=== PATIENT | female | born 1950 | race Caucasian/White ===

== ENCOUNTER → 2017-05-28 | Outpatient (CLI) | payer OTHER ==
[~2017-05-28] MED LIST: ASPI-435 PO; CALC500C70 PO; CZR25 PO; EFFEXOR PO; GLC/500 PO; LPD600 PO; NTRGSL/4 UT; OMEG10002 PO; PRAV80TA PO; SYN50 PO
--- NOTE | 2017-05-29 14:03 | MAMMOGRAPHY REPORT ---
BILATERAL DIGITAL SCREENING MAMMOGRAM TOMOSYNTHESIS WITH CAD: 05/28/2017 CLINICAL HISTORY: Routine screening. Patient has no complaints. TECHNIQUE: Breast tomosynthesis in addition to standard 2D mammography was performed. Current study was also evaluated with a Computer Aided Detection (CAD) system. COMPARISON: Comparison is made to exams dated: 05/22/2016 mammogram, 05/18/2015 mammogram, 05/05/2014 ma mmogram, 04/29/2013 mammogram, 04/28/2012 mammogram, and 04/25/2011 mammogram - [facility] ter. BREAST COMPOSITION: The tissue of both breasts is almost entirely fatty. FINDINGS: No suspicious masses, calcifications, or areas of architectural distortion are noted in ei ther breast. There has been no significant interval change compared to prior exams. Scattered bilater al benign-appearing calcifications are not significantly changed. IMPRESSION: ACR BI-RADS CATEGORY 2: BENIGN There is no mammographic evidence of malignancy. A 1 year screening mammogram is recommended. The pa tient will receive written notification of the results. Approximately 10% of breast cancers are not detected with mammography. A negative mammographic report should not delay biopsy if a clinically suggestive mass is present. Tia Osorio M.D. /:05/28/2017 16:46:37 Theatrical Variety Agent: Maira Obando, [facility] letter sent: Normal 1/2 BI-RADS Code: ACR BI-RADS Category 2: Benign
== END | disposition home or self-care (01) ==
LOC: C.MAMM 09:32
PROVIDERS: ATTEND Obstetrics & Gynecology
DX: Z12.31 Encounter for screening mammogram for malignant neoplasm of breast (principal)

== ENCOUNTER 2017-07-18 11:30 | Emergency (ER) | payer OTHER ==
[~2017-07-18] VITALS: Ht 162.6 cm; Wt 95.3 kg
[2017-07-18 11:35] VITALS: TEMP 37.1; Ht 162.6 cm; Wt 95.3 kg
[2017-07-18 11:55] VITALS: O2SAT 97
[2017-07-18] MEDS ORDERED: ASPI-435 PO (13:36)
[2017-07-18] MEDS ORDERED: CZR25 PO (13:36)
[2017-07-18] MEDS ORDERED: CALC500C70 PO (13:36)
[2017-07-18] MEDS ORDERED: NTRGSL/4 UT (13:36)
[2017-07-18] MEDS ORDERED: OMEG10002 PO (13:36)
[2017-07-18] MEDS ORDERED: LPD600 PO (13:36)
[2017-07-18] MEDS ORDERED: GLC/500 PO (13:36)
[2017-07-18] MEDS ORDERED: SYN50 PO (13:36)
[2017-07-18] MEDS ORDERED: EFFEXOR PO (13:36)
[2017-07-18] MEDS ORDERED: PRAV80TA PO (13:36)
--- NOTE | 2017-07-18 14:06 | DIAGNOSTIC IMAGING REPORT ---
CHEST 2 VIEWS ROUTINE CLINICAL HISTORY: Shortness of breath COMPARISON STUDY: No previous studies for comparison. FINDINGS: The cardiac and mediastinal contours are normal. There is no evidence of focal pulmonary consolidation. There is no evidence of failure. No pleural effusions are visualized.[ IMPRESSION: No active disease in the chest. Electronically signed by: Reji Mackey M.D. 07/18/2017 2:05 PM Dictated Date/Time: 07/18/2017 2:05 PM
[2017-07-18 14:29] LABS: BASO % 1.2 %; BASO ABS # 0.09 K/uL (0-0.2); COMPLETE YES; EOS % 4.6 %; HEMATOCRIT 40.5 % (37-47); IG% 0.3 %; LYMPH % 27.8 %; LYMPH ABS # 2.17 K/uL (1.2-3.4); MEAN CELL VOLUME 88.2 fL (80-100); MEAN CORPUSCULAR HEMOGLOBIN 29.8 pg (25-34); MEAN CORPUSCULAR HGB CONC 33.8 g/dl (32-36); MEAN PLATELET VOLUME 9.9 fL (7.4-10.4); MONO % 6.7 %; NEUT % 59.4 %; PLATELET COUNT 340 K/uL (130-400); RED BLOOD COUNT 4.59 M/uL (4.2-5.4)
[2017-07-18 14:38] LABS: ALT/SGPT 51 U/L (12-78); BLOOD UREA NITROGEN 11 mg/dl (7-18); BUN/CREATININE RATIO 16.8 (10-20); CALCIUM 9.5 mg/dl (8.5-10.1); CARBON DIOXIDE 23 mmol/L (21-32); CHLORIDE 106 mmol/L (98-107); CREATININE 0.68 mg/dl (0.60-1.20); GLUCOSE 111 mg/dl (70-99); POTASSIUM 3.8 mmol/L (3.5-5.1); SODIUM 138 mmol/L (136-145)
[2017-07-18 14:39] LABS: PARTIAL THROMBOPLASTIN RATIO 1.1; PROTHROMBIN TIME (PATIENT) 10.3 SECONDS (9.0-12.0)
[2017-07-18 14:48] LABS: ALB/GLOB RATIO 1.2 (0.9-2); ALKALINE PHOSPHATASE 78 U/L (45-117); AST/SGOT 17 U/L (15-37); CKMB/CK RATIO 1.6 (0-3.0)
--- NOTE | 2017-07-18 17:19 | EMERGENCY ROOM VISIT NOTE ---
History First contact with patient: 12:54 Chief Complaint: SHORTNESS OF BREATH Stated Complaint: SOB,ANXIOUS Nursing Triage Summary: Patient reports having some sob and heaviness with breathing. "this has been ongoing over most of the summer." went to pcp and I was told to come here. Patient reports history of anxiety, denies history of asthma. History of Present Illness Patient is a 66-year-old white female with past history significant for hypertension, GERD, hypothyroidism, diabetes, dyslipidemia and anxiety who presents emergency department for evaluation of shortness of breath. Her symptoms started several months ago, she states since the beginning of summer. She reports intermittently feeling short of breath, it is primarily with exertion.. She states that she often has to stop and concentrate to take a full deep breath. She notes that it does not happen every day, and some days she can perform her normal activities and not experience any symptoms. She cannot relate any specific activity that always causes her symptoms. She states that she begins to feel like her upper body and her arms feel heavy and weak. She feels short of breath. She states if she does not stop she will develop some chest pressure and palpitations. She denies any associated lightheadedness, dizziness or presyncope. She denies any calf or leg pain or swelling. No DVT or PE risk factors. She denies any household or occupational exposures, but reports that her parents were very heavy smokers when she was young. She has never smoked herself. She has a changes in her medications recently. No calf or leg pain or swelling. She was referred to the emergency department by Dr. Way. At the present time, she is asymptomatic. She rates her pain a 0/10. Review of Systems Review of systems as per HPI. All other systems reviewed were negative. 10 systems reviewed. Past Medical/Surgical History Medical Problems: (1) Anxiety (2) Diabetes (3) Dyslipidemia (4) GERD (gastroesophageal reflux disease) (5) Hypertension (6) Hypothyroidism (7) Laceration of third finger, left, complicated (8) Laceration of third finger, left, complicated Surgical Problems: (1) History of tonsillectomy Electronic medical records are reviewed and summarized as above/below. See Problem List. Social History Smoking Status: Never Smoker Alcohol Use: none Marital Status: Occupation Status: unemployed Current/Historical Medications Scheduled Aspirin (Aspirin 81), 81 MG PO DAILY Calcium/Vitamin D (Os-Lalo 500 Plus D), 1 TAB PO DAILY Gemfibrozil (Gemfibrozil), 600 MG PO BID Levothyroxine Sodium (Synthroid), 50 MCG PO QAM Losartan Potassium (Losartan Potassium), 25 MG PO DAILY Metformin Hcl (Glucophage), 500 MG PO BID Nitroglycerin (Nitrostat), 0.4 MG UT PRN [place]arat-3 Fatty Acids (Fish Oil), 1,000 MG PO DAILY Pravastatin Sodium (Pravachol), 80 MG PO 3XWK [Effexor], 1 DOSE PO DAILY Physical Exam Vital Signs Date Time Temp Pulse Resp B/P (MAP) Pulse Ox O2 Delivery O2 Flow Rate FiO2 07/18/17 18:14 71 18 160/80 99 07/18/17 18:13 71 18 160/80 99 Room Air 07/18/17 17:02 63 20 163/95 98 Room Air 07/18/17 16:19 71 07/18/17 16:08 68 20 152/80 95 Room Air 07/18/17 14:48 66 20 140/84 96 Room Air 07/18/17 13:13 68 18 149/80 98 Room Air 07/18/17 12:09 72 07/18/17 11:57 97 Room Air 07/18/17 11:55 97 Room Air 07/18/17 11:35 37.1 73 18 179/80 97 Room Air Physical Exam CONSTITUTIONAL: Patient is a pleasant, well-appearing 66-year-old white female who is awake and alert and in no acute distress. EYES: Pupils equal, round, reactive to light and accommodation. EOMs intact without nystagmus. Sclera are anicteric. ENT: Tympanic membranes intact, with normal landmarks. External canals are clear. Oral and nasopharynx are clear. Mucous membranes are moist, no lesions , tongue and gums appear normal. NECK: No bruits auscultated. Supple without lymphadenopathy. No thyromegaly. No meningeal signs. Full active range of motion without discomfort. CARDIOVASCULAR: Regular rate and rhythm, with normal S1 and S2, no murmur or gallop or rub is heard. No carotid bruits auscultated. No JVD. Peripheral pulses easy to palpable. RESPIRATORY: Breath sounds equal and clear to auscultation without wheezes, rales, or rhonchi heard. Full and equal chest expansion without accessory muscle use or retractions. GI: Bowel sounds are present. Abdomen is soft, nontender, nondistended. No organomegaly. No pulsatile masses. No guarding or rebound. MUSCULOSKELETAL: Full range of motion of extremities x 4 with good strength. No cyanosis, edema, joint tenderness or swelling. No deformity. INTEGUMENTARY: No lesions or rash, normal skin turgor. NEUROLOGICAL: Alert, oriented, and cooperative. Cranial nerves, sensation and strength grossly intact. Pupils round, equal, and react to light, EOMs are full. LYMPH: No lymphadenopathy. Medical Decision & Procedures ER Provider Diagnostic Interpretation: CHEST 2 VIEWS ROUTINE CLINICAL HISTORY: Shortness of breath COMPARISON STUDY: No previous studies for comparison. FINDINGS: The cardiac and mediastinal contours are normal. There is no evidence of focal pulmonary consolidation. There is no evidence of failure. No pleural effusions are visualized. IMPRESSION: No active disease in the chest. Laboratory Results 07/18/17 11:51 Red Blood Count 4.59, Mean Corpuscular Volume 88.2, Mean Corpuscular Hemoglobin 29.8, Mean Corpuscular Hemoglobin Concent 33.8, Mean Platelet Volume 9.9, Neutrophils (%) (Auto) 59.4, Lymphocytes (%) (Auto) 27.8, Monocytes (%) (Auto) 6.7, Eosinophils (%) (Auto) 4.6, Basophils (%) (Auto) 1.2, Neutrophils # (Auto) 4.64, Lymphocytes # (Auto) 2.17, Monocytes # (Auto) 0.52, Eosinophils # (Auto) 0.36, Basophils # (Auto) 0.09 07/18/17 11:51 Test 07/18/17 11:51 07/18/17 13:36 07/18/17 17:02 White Blood Count 7.80 K/uL (4.8-10.8) Red Blood Count 4.59 M/uL (4.2-5.4) Hemoglobin 13.7 g/dL (12.0-16.0) Hematocrit 40.5 % (37-47) Mean Corpuscular Volume 88.2 fL (80-100) Mean Corpuscular Hemoglobin 29.8 pg (25-34) Mean Corpuscular Hemoglobin Concent 33.8 g/dl (32-36) Platelet Count 340 K/uL (130-400) Mean Platelet Volume 9.9 fL (7.4-10.4) Neutrophils (%) (Auto) 59.4 % Lymphocytes (%) (Auto) 27.8 % Monocytes (%) (Auto) 6.7 % Eosinophils (%) (Auto) 4.6 % Basophils (%) (Auto) 1.2 % Neutrophils # (Auto) 4.64 K/uL (1.4-6.5) Lymphocytes # (Auto) 2.17 K/uL (1.2-3.4) Monocytes # (Auto) 0.52 K/uL (0.11-0.59) Eosinophils # (Auto) 0.36 K/uL (0-0.5) Basophils # (Auto) 0.09 K/uL (0-0.2) RDW Standard Deviation 42.3 fL (36.4-46.3) RDW Coefficient of Variation 13.2 % (11.5-14.5) Immature Granulocyte % (Auto) 0.3 % Immature Granulocyte # (Auto) 0.02 K/uL (0.00-0.02) Prothrombin Time 10.3 SECONDS (9.0-12.0) Prothromb Time International Ratio 1.0 (0.9-1.1) Activated Partial Thromboplast Time 29.6 SECONDS (21.0-31.0) Partial Thromboplastin Ratio 1.1 Anion Gap 9.0 mmol/L (3-11) Est Creatinine Clear Calc Drug Dose 92.4 ml/min Estimated GFR () 106.4 Estimated GFR (Non- 91.8 BUN/Creatinine Ratio 16.8 (10-20) Calcium Level 9.5 mg/dl (8.5-10.1) Total Bilirubin 0.4 mg/dl (0.2-1) Aspartate Amino Transf (AST/SGOT) 17 U/L (15-37) Alanine Aminotransferase (ALT/SGPT) 51 U/L (12-78) Alkaline Phosphatase 78 U/L (45-117) Total Creatine Kinase 110 U/L (26-192) Creatine Kinase MB 1.8 ng/ml (0.5-3.6) Creatine Kinase MB Ratio 1.6 (0-3.0) Total Protein 8.3 gm/dl (6.4-8.2) Albumin 4.5 gm/dl (3.4-5.0) Globulin 3.8 gm/dl (2.5-4.0) Albumin/Globulin Ratio 1.2 (0.9-2) Thyroid Stimulating Hormone (TSH) 2.300 uIu/ml (0.300-4.500) Bedside D-Dimer 143 ng/mlFEU (0-450) Troponin I < 0.015 ng/ml (0-0.045) ECG Indication: SOB/dyspnea Rate (beats per minute): 72 Rhythm: sinus with SA Findings: T-wave inversion (Inferior) Comparison ECG Date: no prior available ED Course The patient was seen and evaluated as above. Old records were reviewed. IV lock was initiated. EKG was performed and was as noted above. Laboratory studies were collected including CBC with differential, coags, cardiac enzymes, CMP, TSH and [id number] d-dimer. Chest x-ray was obtained and was unremarkable. Laboratory studies noted no leukocytosis, anemia, left shift or bandemia. Coags are unremarkable and [id number] d-dimer is within normal limits, making PE unlikely. Electrolytes and renal functions are within normal limits. LFTs are not elevated. CK, CK-MB are normal. Troponin at 0 and 5 hours are unchanged. TSH is indicative of a euthyroid state. All laboratory and diagnostic imaging studies were reviewed with attending physician, who also independently evaluated the patient. Given the chronicity of her symptoms, with negative enzymes, but with EKG changes, I did review the patient with Dr. Gilliland with [facility] cardiology. He was in agreement, that if the patient had 2 sets of negative enzymes, she could go home, rather than be admitted for cardiac rule out, as she will require an echo and stress test, which will likely be performed as an outpatient, rather than in the hospital over the weekend. This was reviewed with the patient and she was in agreement. She was kept for the second troponin, remained completely asymptomatic, and as noted above second troponin was negative. The patient was given strict return to ED instructions, and was advised to call her PCPs office on Friday to set up a follow-up appointment with cardiology for further care and testing. She expressed understanding of this and was agreeable. She is discharged home with her sisters in stable condition. BP fluctuated while she was in the emergency department. Some of this could be situational, but she was advised to have this rechecked in follow-up as well. Differential diagnosis includes acute myocardial infarction, acute coronary syndrome, myocarditis, pericarditis, pulmonary embolism, pneumonia, pneumothorax , cardiomyopathy, congestive heart failure, anemia, COPD/asthma exacerbation, mass or malignancy, medication side effect, metabolic or endocrinologic abnormality, among others. Medical Decision See Emergency Department course. Medication Reconcilliation Current Medication List: was personally reviewed by me Blood Pressure Screening Patient's blood pressure: Elevated blood pressure Blood pressure disposition: Elevated BP felt to be situational, Referred to PCP Impression Primary Impression: Exertional shortness of breath Departure Information Referrals Leigh Way D.O. (PCP) Patient Instructions My [facility] Additional Instructions Acetaminophen(Tylenol) may be used for fever or pain. Use 1000mg every six hours as needed. Avoid using more than 3000mg in a 24 hour period. Rest and drink plenty of fluids as tolerated. Continue current medications. Avoid strenuous activities and anything that worsens your pain. Resume normal activities once your symptoms resolve. Return to the ER immediately for worsening or persistent chest pain, abdominal pain, vomiting, fevers, chest pains, difficulty breathing, worsening of your condition, or as needed. Follow up with your primary physician by phone on Friday to notify them of the results of your ED visit, and to schedule cardiology follow-up for further testing.
--- NOTE | 2017-07-18 18:10 | EMERGENCY ROOM VISIT NOTE ---
ED Visit Note First contact with patient: 12:54 Patient seen and evaluated at bedside after discussion with physician assistant center director. She well-appearing here with no current complaints. Patient aware of all results as well as conversation with cardiology. Patient aware of need for close follow-up. Discussed with patient symptoms to watch and return for, concern given her story spite being chronic. Concern for subtle EKG changes. She verbalized understanding of all this was agreeable with plan.
[2017-07-18 18:14] VITALS: BP 160/80; PULSE 71; O2SAT 99
== END 2017-07-18 18:15 | disposition home or self-care (01) ==
LOC: C.EDB 11:31 → C.EDC 18:15
DX: R06.02 Shortness of breath (principal); I10 Essential (primary) hypertension; E11.9 Type 2 diabetes mellitus without complications; F41.9 Anxiety disorder, unspecified; E78.5 Hyperlipidemia, unspecified; E03.9 Hypothyroidism, unspecified; K21.9 Gastro-esophageal reflux disease without esophagitis; Z87.828 Personal history of other (healed) physical injury and trauma; Z79.82 Long term (current) use of aspirin; Z79.84 Long term (current) use of oral hypoglycemic drugs; Z79.899 Other long term (current) drug therapy

== ENCOUNTER → 2017-07-25 | Outpatient (CLI) | payer OTHER | END | disposition home or self-care (01) | LOC: C.PAPS 16:35 | PROVIDERS: ATTEND Obstetrics & Gynecology | DX: Z12.4 Encounter for screening for malignant neoplasm of cervix (principal) ==

== ENCOUNTER 2018-02-17 18:15 | Emergency (ER) | payer OTHER ==
[~2018-02-17] VITALS: Ht 162.6 cm; Wt 96.1 kg
[~2018-02-17 18:15] MED LIST changes: +ACYC-57 PO; +EFF/375 PO; -EFFEXOR PO; +LPT40 PO; +NIAC500T11 PO; +NTRSLP4 SL; +PLV75 PO; -PRAV80TA PO
[2018-02-17 18:30] VITALS: TEMP 36.6; Ht 162.6 cm; Wt 96.1 kg
--- NOTE | 2018-02-17 18:45 | EMERGENCY ROOM VISIT NOTE ---
History First contact with patient: 18:35 Chief Complaint: HAND PAIN/INJURY Stated Complaint: NEEDS HAND XRAYED History of Present Illness The patient is a 67 year old female who presents to the Emergency Room with complaints of right hand pain. The patient states that this morning, she tripped and fell over her grandson's scooter and landed onto her right hand. She reports pain in the right hand and little finger. She rates her discomfort a 3/10 and states it is dull. Pain is worse with movement of the hand. She has not taken anything for pain. She denies any other injuries. She did not hit her head. She denies any numbness or weakness. Review of Systems A complete 6 point review of systems was reviewed with the patient with pertinent positives and negatives as per history of present illness. All else were negative. Past Medical/Surgical History Medical Problems: (1) Anxiety (2) CAD (coronary artery disease) (3) Diabetes (4) Dyslipidemia (5) GERD (gastroesophageal reflux disease) (6) Hypertension (7) Hypothyroidism (8) Laceration of third finger, left, complicated (9) Laceration of third finger, left, complicated Surgical Problems: (1) History of tonsillectomy Social History Smoking Status: Never Smoker Alcohol Use: none Marital Status: Occupation Status: unemployed Current/Historical Medications Scheduled Acyclovir (Zovirax), 200 MG PO 5 TIMES DAILY Aspirin (Aspirin 81), 81 MG PO DAILY Atorvastatin (Lipitor), 80 MG PO QAM Calcium/Vitamin D (Os-Lalo 500 Plus D), 1 TAB PO BID Clopidogrel Bisulfate (Clopidogrel), 75 MG PO QAM Gemfibrozil (Gemfibrozil), 600 MG PO BID Levothyroxine Sodium (Synthroid), 50 MCG PO QAM Losartan Potassium (Losartan Potassium), 25 MG PO DAILY Metformin Hcl (Glucophage), 500 MG PO BID Niacin (Niacin), 1,000 MG PO DAILY Nitroglycerin (Nitrostat), 0.4 MG UT PRN [place]-3 Fatty Acids (Fish Oil), 1,000 MG PO DAILY Venlafaxine Hcl (Effexor), 50 MG PO DAILY Scheduled PRN Nitroglycerin (Nitrostat), 0.4 MG SL UD PRN for Chest Pain Physical Exam Vital Signs Date Time Temp Pulse Resp B/P (MAP) Pulse Ox O2 Delivery O2 Flow Rate FiO2 5/1/18 19:43 82 18 171/69 97 02/17/18 18:30 36.6 86 20 180/73 96 Room Air Physical Exam VITALS: Vitals are noted on the nurse's note and reviewed by myself. Vital signs stable. GENERAL: This is a 67-year-old female, in no acute distress, nondiaphoretic, well-developed well-nourished. SKIN: The skin was without rashes, erythema, edema, or bruising. MUSCULOSKELETAL: No deformity of the right hand. There is tenderness to palpation along the fifth metacarpal and in the right fifth finger. Full range of motion of all fingers. Strength 5/5 throughout. NEURO: Patient was alert and oriented to person place and time. Distal sensation intact. Medical Decision & Procedures ER Provider Diagnostic Interpretation: R HAND MIN 3 VIEWS ROUTINE HISTORY: 67 years-old Female right hand injury acute right hand pain status post injury COMPARISON: None available TECHNIQUE: 3 views of the right hand FINDINGS: Bones appear mildly demineralized. Mild radiocarpal with moderate triscaphe and first carpometacarpal osteoarthritis. Moderate interphalangeal degenerative changes are noted throughout, notably within the DIP joints. There is no acute fracture or dislocation identified. No opaque foreign body. IMPRESSION: 1. No acute fracture or dislocation. 2. Mildly demineralized appearance of the bones with degenerative changes as above. Medical Decision Differential diagnosis includes fracture, contusion, sprain, among others. The patient was evaluated as above. And x-ray was obtained and read by radiology with no acute findings. Patient was placed in a metal finger splint due to pain of the fifth finger. Conservative measures were discussed with the patient. She was advised to follow up with her PCP or orthopedist for any persistent symptoms. She verbalized understanding of my assessment and treatment plan and was discharged home in good condition. Medication Reconcilliation Current Medication List: was personally reviewed by me Blood Pressure Screening Patient's blood pressure: Elevated blood pressure Blood pressure disposition: Elevated BP felt to be situational Impression Primary Impression: Injury of right hand Departure Information Dispostion Home / Self-Care Condition GOOD Referrals Leigh Way D.O. (PCP) Patient Instructions My [facility] Additional Instructions You have been treated in the Emergency Department for a hand injury. For pain control, you can use the following [id number] medicines (if >12 yo): - Regular strength (325mg/tab) Tylenol (acetaminophen) 2 tabs every 4-6 hours as needed. Do not exceed 12 tablets in a 24 hour period. Avoid taking more than 4 grams (4000 mg) of Tylenol per day. This includes any other sources of acetaminophen you may take on a regular basis. - Regular strength (200 mg/tab) Advil (ibuprofen) 1-2 tabs every 4-6 hours as needed. Do not exceed a dose of 3200 mg per day. If this is a recent injury (<24 hrs), ice can be applied to the area of pain for the first 3 days to help decrease pain and inflammation. Keep the splint in place as needed for your comfort. Follow-up with your primary care provider or orthopedics if there is persistent pain or any other new/concerning symptoms. Return to the Emergency Department if your current symptoms worsen despite treatment course outlined above, or if you develop any of the following symptoms : intractable pain despite aforementioned treatment course or new onset of numbness or tingling of the fingers. Problem Qualifiers Primary Impression: Injury of right hand Encounter type: initial encounter Qualified Codes: S69.91XA - Unspecified injury of right wrist, hand and finger(s), initial encounter
--- NOTE | 2018-02-17 19:18 | DIAGNOSTIC IMAGING REPORT ---
R HAND MIN 3 VIEWS ROUTINE HISTORY: 67 years-old Female right hand injury acute right hand pain status post injury COMPARISON: None available TECHNIQUE: 3 views of the right hand FINDINGS: Bones appear mildly demineralized. Mild radiocarpal with moderate triscaphe and first carpometacarpal osteoarthritis. Moderate interphalangeal degenerative changes are noted throughout, notably within the DIP joints. There is no acute fracture or dislocation identified. No opaque foreign body. IMPRESSION: 1. No acute fracture or dislocation. 2. Mildly demineralized appearance of the bones with degenerative changes as above. The above report was generated using voice recognition software. It may contain grammatical, syntax or spelling errors. Electronically signed by: Edgar Toussaint M.D. 02/17/2018 7:16 PM Dictated Date/Time: 02/17/2018 7:14 PM
[2018-02-17 19:43] VITALS: BP 171/69; PULSE 82; O2SAT 97
== END 2018-02-17 19:43 | disposition home or self-care (01) ==
LOC: C.EDB 18:16 → C.EDD 19:43
DX: S69.91XA Unspecified injury of right wrist, hand and finger(s), initial encounter (principal); W18.09XA Striking against other object with subsequent fall, initial encounter; F41.9 Anxiety disorder, unspecified; I25.10 Atherosclerotic heart disease of native coronary artery without angina pectoris; E11.9 Type 2 diabetes mellitus without complications; E78.5 Hyperlipidemia, unspecified; K21.9 Gastro-esophageal reflux disease without esophagitis; I10 Essential (primary) hypertension; E03.9 Hypothyroidism, unspecified; Z79.82 Long term (current) use of aspirin; Z79.899 Other long term (current) drug therapy; Z79.84 Long term (current) use of oral hypoglycemic drugs

== ENCOUNTER 2018-12-27 09:52 | Inpatient (IN) ==
[2018-12-27] MEDS ORDERED: MoRPHine SULFATE 4 MG/ML 1 ML CARP\\VIAL IV STA (10:06)
[2018-12-27] MEDS ORDERED: SODIUM CHLORIDE 0.9% 1000ML 500 ML IV ONE (10:06)
[2018-12-27] MEDS ORDERED: KETOROLAC TROMETHAMINE 15 MG/ML VIAL IV STA (10:06)
[2018-12-27] MEDS ORDERED: ONDANSETRON INJ 2 MG/ML 2 ML VIAL IV STA (10:06)
[2018-12-27 10:31] LABS: Basophils # (auto) 0.03 K/uL (0-0.2); Basophils % (auto) 0.2 %; Eosinophils # (auto) 0.07 K/uL (0-0.5); Eosinophils % (auto) 0.5 %; Hematocrit (blood only) 41.6 % (37-47); Hemoglobin 14.6 g/dL (12.0-16.0); Immature Granulocytes # (auto) 0.04 K/uL (0.00-0.02); Immature Granulocytes % (auto) 0.3 %; Lymphocytes % (auto) 9.6 %; Mean Corpuscular Hgb Conc 35.1 g/dL (32-36); Mean Corpuscular Volume 88.1 fL (80-100); Mean Platelet Volume 9.2 fL (7.4-10.4); Monocytes # (auto) 0.62 K/uL (0.11-0.59); Monocytes % (auto) 4.6 %; Neutrophils # (auto) 11.48 K/uL (1.4-6.5); Neutrophils % (auto) 84.8 %; Platelet Count 352 K/uL (130-400); RDW Coefficient of Variation 13.2 % (11.5-14.5); RDW Standard Deviation 42.5 fL (36.4-46.3); Red Blood Count 4.72 M/uL (4.2-5.4); White Blood Count 13.54 K/uL (4.8-10.8)
[2018-12-27] MEDS ORDERED: MoRPHine SULFATE 2 MG/ML CARP IV STA (10:32)
[2018-12-27 10:54] LABS: Albumin Level 4.4 gm/dl (3.4-5.0); BUN Creatinine Ratio 20.4 (10-20); Calcium 9.6 mg/dl (8.5-10.1); Creatinine Clr Calc Pharmacy 77.4 ml/min; Est GFR (African American) 91.2; Est GFR (Non-African American) 78.7
[2018-12-27 10:57] LABS: Albumin Globulin Ratio 1.1 (0.9-2); Bilirubin,Total 0.4 mg/dl (0.2-1); Globulin 3.9 gm/dl (2.5-4.0); Total Protein 8.3 gm/dl (6.4-8.2)
[2018-12-27] MEDS ORDERED: HYDROmorphone INJ 0.5 MG/0.5 ML SYR IV STA (10:58)
--- NOTE | 2018-12-27 11:37 | Emergency Department Note ---
History of Present Illness General Chief complaint: Back Injury/Pain Stated complaint: LEFT SIDE BACK PAIN Time Seen by Provider: 12/27/18 09:58 History of Present Illness Maximum Pain Intensity: 8 68-year-old female who presents to emergency department with complaint of uncontrollable lower back pain radiating down the left leg to her foot. The patient reports that she has been here twice within the past several days for symptoms that are progressively worsening. The patient reports that the pain has been worsening over the past 2 weeks. She was seen last week by her chiropractor and had an adjustment, which significantly worsened her pain. The patient denies any bladder or bowel incontinence, saddle anesthesias or foot drop, but does feel that her left leg is weaker than the right. She denies any other recent infections, fevers or chills. She rates her discomfort a 10 out of 10. Home Medications Home Medications Medication Instructions Recorded Confirmed Type aspirin [Aspirin Low Dose] 81 mg PO HS 12/25/18 12/27/18 History atorvastatin 80 mg PO DAILY 12/25/18 12/27/18 History calcium carbonate-vitamin D3 1 tab PO BID 12/25/18 12/27/18 History [Calcium 500 + D] gemfibrozil 600 mg PO BID 12/25/18 12/27/18 History levothyroxine 50 mcg PO QAM 12/25/18 12/27/18 History lidocaine 1 patch TOP DAILY PRN #15 ea 12/25/18 12/27/18 Rx losartan 25 mg PO DAILY 12/25/18 12/27/18 History metformin 1,000 mg PO BID 12/25/18 12/27/18 History methylprednisolone [Medrol (Osorio)] See Rx Instructions .ROUTE 12/25/18 12/27/18 Rx .COMPLEX #21 ea metoprolol succinate 12.5 mg PO QAM 12/25/18 12/27/18 History niacin 2,000 mg PO 1200 12/25/18 12/27/18 History nitroglycerin 0.4 mg SUBLINGUAL DIRECTED 12/25/18 12/27/18 History omega 7-dmm-oze-fish oil [Fish Oil] 1 cap PO 1200 12/25/18 12/27/18 History venlafaxine 50 mg PO DAILY 12/25/18 12/27/18 History cyclobenzaprine 5 mg PO TID PRN #30 tab 12/26/18 12/27/18 Rx Allergies Allergy/AdvReac Type Severity Reaction Status Date / Time No Known Allergies AdvReac Unknown Unverified 12/27/18 10:30 Past Med/Surg History Medical History Mood disorder (Chronic) Type 2 diabetes mellitus (Chronic) Hyperlipidemia (Chronic) Hypothyroidism (Chronic) Hypertension (Chronic) CAD (coronary artery disease) (Chronic) Surgical History History of heart artery stent (Chronic) S/P stent to LAD at [facility] in July 2017 History of tonsillectomy (Resolved) Family History Mother CHF (congestive heart failure) Diabetes Social History Preferred Language: Serbian Communication Ability: Effective Classroom Aide Required: No Beliefs That Will Affect Care: Congregational marital status: Current Living Situation: Spouse current occupational status: retired Other Information That Helps Us Care for You: No Feels Safe at Home: Yes Safety Concerns: Feels Safe At This Time Smoking Status: Never smoker Hx Alcohol Use: No Hx Substance Use: No Review of Systems HEENT: Denies dizziness, visual problems, hearing loss, tinnitus. Denies difficulty swallowing or oral lesions. PULMONARY: Denies cough, shortness of breath, sputum production or hemoptysis. CARDIOVASCULAR: Denies chest pain, palpitations, dyspnea on exertion, orthopnea or peripheral edema. GASTROINTESTINAL: Denies diarrhea, constipation, nausea, vomiting, or abdominal pain. GENITOURINARY: Denies dysuria, frequency, urgency or nocturia. NEUROLOGIC: Denies history of epilepsy, CVA, TIA or chronic headaches. MUSCULOSKELETAL: Denies history of joint tenderness/swelling. SKIN: Denies rashes or lesions. PSYCHIATRIC: History of depression. ENDOCRINE: History of diabetes and thyroid disease. Physical Exam Vital Signs Vital Signs - 24 hr 12/27/18 09:54 12/27/18 10:43 12/27/18 12:56 Temperature 36.8 C Temperature Source Oral Sepsis Recent Fever Within 48 Hours No Sepsis New/Unexplained Change in Mental Status No Sepsis Action Taken by Nursing No Action Required Pulse Rate 87 Pulse Rate [Left Brachial] Pulse Rate [Left Finger] Pulse Rate [Right] 91 H Pulse Rhythm [Right] Regular Respiratory Rate 18 18 Respiratory Effort / Characteristics Non-Labored Respiratory Depth Normal Normal Respiratory Pattern Blood Pressure 158/89 H Blood Pressure [Left Arm] Blood Pressure [Right Arm] 168/87 H Blood Pressure Mean 112 Blood Pressure Mean [Left Arm] Blood Pressure Mean [Right Arm] 114 Blood Pressure Position [Left Arm] Pulse Oximetry 98 95 Oxygen Delivery Method Room Air Room Air Room Air 12/27/18 13:25 12/27/18 13:46 12/27/18 15:31 Temperature 37.1 C 36.5 C Temperature Source Oral Oral Sepsis Recent Fever Within 48 Hours Sepsis New/Unexplained Change in Mental Status Sepsis Action Taken by Nursing Pulse Rate Pulse Rate [Left Brachial] 88 Pulse Rate [Left Finger] 82 Pulse Rate [Right] 88 Pulse Rhythm [Right] Respiratory Rate 16 16 18 Respiratory Effort / Characteristics Non-Labored Spontaneous Respiratory Depth Normal Respiratory Pattern Regular Blood Pressure Blood Pressure [Left Arm] 134/68 118/70 Blood Pressure [Right Arm] 126/58 L Blood Pressure Mean Blood Pressure Mean [Left Arm] 90 86 Blood Pressure Mean [Right Arm] 80 Blood Pressure Position [Left Arm] Sitting Lying Pulse Oximetry 90 93 92 Oxygen Delivery Method Room Air Room Air Room Air CONSTITUTIONAL: Healthy and well nourished. Alert and oriented X 3. Patient appears in severe discomfort, and is crying. HEENT: Normocephalic, atraumatic. Pupils equal, round and reactive. No scleral icterus or conjunctival injection/pallor. NECK: Full active range of motion without discomfort. LYMPHATICS: No cervical chain adenopathy. RESPIRATORY: Clear to auscultation bilaterally with no wheezing, crackles, rhonchi or stridor. CARDIOVASCULAR: Regular rate and rhythm with no murmurs, rubs or gallops. GASTROINTESTINAL: Bowel sounds present in all quadrants. Soft and nontender to palpation. No palpable pulsatile masses. MUSCULOSKELETAL: Examination shows a positive straight leg raise on the left, and negative crossover on the right. No worsening pain with logroll. She has mild tenderness to palpation through the lower lumbar paraspinous muscle and SI joint. Ankle plantar/dorsiflexion strength is 4 out of 5 and symmetric bilaterally. INTEGUMENTARY: No rash or other significant dermatologic conditions noted. HEMATOLOGIC: No ecchymosis or petechiae. PSYCHIATRIC: Positive affect. NEUROLOGIC: Cranial nerves II-XII grossly intact. No focal neurologic deficits noted. Lower extremities are sensory intact. Deep tendon reflexes are 2+ and symmetric bilaterally. Course Patient history and physical exam were performed. Nurse's notes were reviewed. Vital signs were reviewed, showing an elevated blood pressure of 168/87. The patient appears in severe discomfort. IV access was established, and labs were drawn. The patient was hydrated with a normal saline 500 cc bolus, and initially administered IV morphine and Zofran. This reduced her pain to a 7 out of 10. The patient was provided an additional smaller dose of IV morphine that did not provide any relief, with the patient still rating her pain a 6 out of 10. She felt that she could not lay in a supine position for MRI with her current pain. The patient was then administered IV Dilaudid with excellent pain control. The patient was maintaining O2 saturations in the low to mid 90s. Labs were reviewed to show no significant findings other than an elevated random glucose and sed rate. White count is also mildly elevated, likely secondary to corticosteroid treatment. Prior to transfer to MRI, the patient was placed on O2 via nasal cannula at 2 L/min. Noncontrast MRI of the lumbar spine did show an L5-S1 disc bulge into the central canal with moderate compression against the thecal sac, and bilateral S1 nerve roots. Upon reevaluation, the patient reported that she still had pain, but was at least manageable, rating her pain a 4 out of 10. The case was further discussed with Dr. Lemus, ED attending physician, who recommended hospitalist consultation. It is noted that we do not have spine surgery investigation lieutenant today. The case was further discussed with Le Vaughan PA-C with the [facility] hospitalist group. The patient will likely require pain management and spine surgeon consultation. The patient was happy with pain management and workup provided, and refused any further analgesics prior to transfer of care to the hospitalist service. Administered Medications Acetaminophen (Tylenol) 1,000 mg PO Q8H PRN PRN Reason: Pain Stop: 01/26/19 13:45 Last Admin: 12/27/18 14:43 Dose: 1,000 mg Documented by: [id number] Cyclobenzaprine HCl (Flexeril) 5 mg PO TID PRN PRN Reason: muscle spasm Stop: 01/26/19 13:45 Last Admin: 12/27/18 14:43 Dose: 5 mg Documented by: [id number] Methylprednisolone 40 mg/ (Syringe) 0.64 mls @ 1.5 mls/min IV DAILY JESSICA Stop: 01/26/19 14:14 Last Admin: 12/27/18 14:44 Dose: 1.5 mls/min Documented by: [id number] Insulin Aspart (Novolog Flexpen) 0 units SC ACHS JESSICA Stop: 01/26/19 13:59 Last Admin: 12/27/18 14:46 Dose: 4 units Documented by: [id number] Cosigned by: [id number] Insulin Glargine (Lantus Solostar Pen) 0 - 16 units SC Q12 JESSICA; Protocol Stop: 01/26/19 14:14 Last Admin: 12/27/18 14:46 Dose: 8 units Documented by: [id number] Cosigned by: [id number] Lidocaine (Lidoderm 5%) 1 patch TD DAILY PRN PRN Reason: back pain Stop: 01/26/19 13:45 Last Admin: 12/27/18 14:43 Dose: 1 patch Documented by: [id number] Oxycodone HCl (Roxicodone Immediate Rel) 5 mg PO Q6H PRN PRN Reason: Moderate Pain Stop: 01/10/19 14:41 Last Admin: 12/27/18 15:44 Dose: 5 mg Documented by: [id number] Discontinued Medications Hydromorphone HCl (Dilaudid) 0.5 mg IV NOW STA Stop: 12/27/18 10:59 Last Admin: 12/27/18 11:03 Dose: 0.5 mg Documented by: [id number] Sodium Chloride (Nss 1000ml) 500 mls @ 999 mls/hr IV .Q31M ONE Stop: 12/27/18 10:36 Last Infusion: 12/27/18 11:03 Dose: 0 mls/hr Documented by: [id number] Admin: 12/27/18 10:24 Dose: 999 mls/hr Documented by: [id number] Ketorolac Tromethamine (Toradol) 15 mg IV ONE STA Stop: 12/27/18 10:07 Last Admin: 12/27/18 10:23 Dose: 15 mg Documented by: [id number] Morphine Sulfate (Morphine Sulfate) 4 mg IV NOW STA Stop: 12/27/18 10:07 Last Admin: 12/27/18 10:23 Dose: 4 mg Documented by: [id number] Morphine Sulfate (Morphine Sulfate) 2 mg IV NOW STA Stop: 12/27/18 10:33 Last Admin: 12/27/18 10:41 Dose: 2 mg Documented by: [id number] Ondansetron HCl (Zofran) 4 mg IV NOW STA Stop: 12/27/18 10:07 Last Admin: 12/27/18 10:23 Dose: 4 mg Documented by: [id number] Medical Decision Making Medical Records Attestation: I reviewed the patient's medical records. Home Medications Current Medication List: was personally reviewed by me Laboratory Data Attestation: I reviewed the patient's lab results. Result diagrams: 12/27/18 09:20 12/27/18 09:20 Lab Results 12/27/18 12/27/18 12/27/18 Range/Units 09:20 09:20 09:20 WBC 13.54 H (4.8-10.8) K/uL RBC 4.72 (4.2-5.4) M/uL Hgb 14.6 (12.0-16.0) g/dL Hct 41.6 (37-47) % MCV 88.1 (80-100) fL MCH 30.9 (25-34) pg MCHC 35.1 (32-36) g/dL RDW Std Deviation 42.5 (36.4-46.3) fL RDW Coeff of Gerald 13.2 (11.5-14.5) % Plt Count 352 (130-400) K/uL MPV 9.2 (7.4-10.4) fL Immature Gran % (Auto) 0.3 % Neut % (Auto) 84.8 % Lymph % (Auto) 9.6 % [place] % (Auto) 4.6 % Eos % (Auto) 0.5 % Baso % (Auto) 0.2 % Immature Gran # (Auto) 0.04 H (0.00-0.02) K/uL Neut # (Auto) 11.48 H (1.4-6.5) K/uL Lymph # (Auto) 1.30 (1.2-3.4) K/uL [place] # (Auto) 0.62 H (0.11-0.59) K/uL Eos # (Auto) 0.07 (0-0.5) K/uL Baso # (Auto) 0.03 (0-0.2) K/uL ESR 37 H (0-21) mm/hr Sodium 137 (136-145) mmol/L Potassium 4.0 (3.5-5.1) mmol/L Chloride 100 (98-107) mmol/L Carbon Dioxide 28 (21-32) mmol/L Anion Gap 9.0 (3-11) BUN 16 (7-18) mg/dl Creatinine 0.78 (0.6-1.2) mg/dl Est Cr Clr Drug Dosing 77.4 ml/min Est GFR ( Amer) 91.2 Est GFR (Non-Af Amer) 78.7 BUN/Creatinine Ratio 20.4 H (10-20) Glucose 231 H (70-99) mg/dl POC Glucose (70-99) Calcium 9.6 (8.5-10.1) mg/dl Total Bilirubin 0.4 (0.2-1) mg/dl AST 7 L (15-37) U/L ALT 34 (12-78) U/L Alkaline Phosphatase 86 (45-117) U/L Total Protein 8.3 H (6.4-8.2) gm/dl Albumin 4.4 (3.4-5.0) gm/dl Globulin 3.9 (2.5-4.0) gm/dl Albumin/Globulin Ratio 1.1 (0.9-2) 12/27/18 Range/Units 14:26 WBC (4.8-10.8) K/uL RBC (4.2-5.4) M/uL Hgb (12.0-16.0) g/dL Hct (37-47) % MCV (80-100) fL MCH (25-34) pg MCHC (32-36) g/dL RDW Std Deviation (36.4-46.3) fL RDW Coeff of Gerald (11.5-14.5) % Plt Count (130-400) K/uL MPV (7.4-10.4) fL Immature Gran % (Auto) % Neut % (Auto) % Lymph % (Auto) % [place] % (Auto) % Eos % (Auto) % Baso % (Auto) % Immature Gran # (Auto) (0.00-0.02) K/uL Neut # (Auto) (1.4-6.5) K/uL Lymph # (Auto) (1.2-3.4) K/uL [place] # (Auto) (0.11-0.59) K/uL Eos # (Auto) (0-0.5) K/uL Baso # (Auto) (0-0.2) K/uL ESR (0-21) mm/hr Sodium (136-145) mmol/L Potassium (3.5-5.1) mmol/L Chloride (98-107) mmol/L Carbon Dioxide (21-32) mmol/L Anion Gap (3-11) BUN (7-18) mg/dl Creatinine (0.6-1.2) mg/dl Est Cr Clr Drug Dosing ml/min Est GFR ( Amer) Est GFR (Non-Af Amer) BUN/Creatinine Ratio (10-20) Glucose (70-99) mg/dl POC Glucose 176 H (70-99) Calcium (8.5-10.1) mg/dl Total Bilirubin (0.2-1) mg/dl AST (15-37) U/L ALT (12-78) U/L Alkaline Phosphatase (45-117) U/L Total Protein (6.4-8.2) gm/dl Albumin (3.4-5.0) gm/dl Globulin (2.5-4.0) gm/dl Albumin/Globulin Ratio (0.9-2) Imaging Data Attestation: I personally reviewed and interpreted this imaging study as follows: My Impression: Noncontrast MRI of the lumbar spine does show a focal central disc herniation at L5-S1, causing moderate impact on the anterior thecal sac and bilateral S1 nerve roots. Additional degenerative changes are also noted of L4- 5. Radiologist report was reviewed. Radiologist's Impression: MR lumbar spine wo con HISTORY: Pain. Radiculopathy. Worsening L lumbar radiculitis TECHNIQUE: Multiplanar multisequence MRI of the lumbar spine was performed wit hout the use of contrast. COMPARISON: None. FINDINGS: For the purpose of the report the L5-S1 disc space will be located on axial image 23 of 25. Signal characteristics of the vertebral bodies are unremarkable. There is moderate degenerative disc desiccation throughout. This is most prominent at L4- L5 and L5-S1. L1-L2: No significant central canal or neural foraminal narrowing. L2-L3: No significant central canal or neural foraminal narrowing. L3-L4: Minimal broad-based disc bulge. Minimal impact anterior thecal sac. L4-L5: Moderate multifactorial spinal stenosis. Moderate narrowing of the left neural foramina. Moderate impact left anterior and left lateral thecal sac. L5-S1: Focal central disc herniation. Moderate impact anterior thecal sac and bilateral S1 nerve roots. IMPRESSION: 1. Moderate multifactorial spinal stenosis L4-L5. 2. Focal central disc herniation L5-S1 with moderate impact upon the thecal sac and S1 nerve roots bilaterally. Blood Pressure Blood Pressure Findings: Elevated blood pressure Blood Pressure Disposition: elevated BP felt to be situational MDM Narrative Based on workup today, I suspect that the patient's discomfort is from the central disc herniation at L5-S1. Given history and laboratory studies, I do not suspect infectious etiology. MRI does not show evidence for spinal hematomas. No obvious fractures have been noted in prior imaging studies. The patient has essentially failed outpatient management and continues to have intractable pain in the emergency department. The patient was also seen and examined by Dr. Lemus, ED attending physician, who agrees with workup and plan of care. Impression & Plan Herniation of intervertebral disc between L5 and S1, Left lumbar radiculitis Discharge Plan Visit Data *Final* Discharge Date/Time: 12/27/18 13:40 Chief Complaint: Back Injury/Pain Stated Complaint: LEFT SIDE BACK PAIN ED Provider: Ja Lemus ED Midlevel Provider: Darrius Park Discharge Problem: Herniation of intervertebral disc between L5 and S1, Left lumbar radiculitis Patient Disposition: Home - Self-Care Discharge Instructions Interventions: ED Discharge Assessment Last Done: 12/27/18 13:40
--- NOTE | 2018-12-27 12:04 | Magnetic Resonance Report ---
MR lumbar spine wo con HISTORY: Pain. Radiculopathy. Worsening L lumbar radiculitis TECHNIQUE: Multiplanar multisequence MRI of the lumbar spine was performed without the use of contras t. COMPARISON: None. FINDINGS: For the purpose of the report the L5-S1 disc space will be located on axial image 23 of 25. Signal characteristics of the vertebral bodies are unremarkable. There is moderate degenerative disc desiccation throughout. This is most prominent at L4-L5 and L5-S1. L1-L2: No significant central canal or neural foraminal narrowing. L2-L3: No significant central canal or neural foraminal narrowing. L3-L4: Minimal broad-based disc bulge. Minimal impact anterior thecal sac. L4-L5: Moderate multifactorial spinal stenosis. Moderate narrowing of the left neural foramina. Moder ate impact left anterior and left lateral thecal sac. L5-S1: Focal central disc herniation. Moderate impact anterior thecal sac and bilateral S1 nerve root s. IMPRESSION: 1. Moderate multifactorial spinal stenosis L4-L5. 2. Focal central disc herniation L5-S1 with moderate impact upon the thecal sac and S1 nerve roots bi laterally. The above report was generated using voice recognition software. It may contain grammatical, syntax or spelling errors. Electronically signed by: Ernie Hammond M.D. 12/27/2018 12:03 PM
--- NOTE | 2018-12-27 13:13 | Emergency Department Note ---
Entered by Marti Heredia acting as a scribe for Ja Lemus MD ED Visit Note The patient was seen and examined by myself in conjunction with Darrius Park PA-C. I agree with the history, physical and findings as documented. Please see the note for disposition and details. The scribe's documentation has been prepared under my direction and personally reviewed by me in its entirety. I confirm that the note above accurately reflects all work, treatment, procedures, and medical decision making performed by me.
--- NOTE | 2018-12-27 13:34 | XRay Report ---
XR chest 1V portable CLINICAL HISTORY: back pain pain COMPARISON STUDY: No previous studies for comparison. FINDINGS: The bones soft tissues and hemidiaphragms are normal. The cardiomediastinal silhouette is n ormal. The lungs are clear. The pulmonary vasculature is normal. IMPRESSION: Negative chest. The above report was generated using voice recognition software. It may contain grammatical, syntax or spelling errors. Electronically signed by: Ernie Hammond M.D. 12/27/2018 1:31 PM
--- NOTE | 2018-12-27 13:39 | History & Physical Report ---
Date of Service December 27, 2018 Assessment & Plan (1) Sacroiliitis: This is a 68-year-old female with a PMH of HTN, HLD, DM II, CAD (s/p stent to LAD in Jul 2017), mood disorder and medical other problems listed below who presents with worsening lower back pain times 2 weeks and was found to have sacroiliitis. -Worsening left back pain with radiating pain into left leg times 2 weeks -Seen in ED 3 days in a row, pain not controlled with lidocaine patch, Flexeril and Medrol Dosepak -Will admit for pain management, consulted Dr. Knapp of orthospine to see patient tomorrow -Lumbosacral spine MRI with: * 1. Moderate multifactorial spinal stenosis L4-L5 * 2. Focal central disc herniation L5-S1 with moderate impact upon the thecal sac and S1 nerve roots bilaterally -Pain control, IV Solu-Medrol 40 mg daily -NPO after midnight in case of possible intervention tomorrow -EKG and CXR obtained for possible preoperative clearance: EKG with normal sinus rhythm, CXR without acute process (2) Type 2 diabetes mellitus: A1c of 7.6 in Oct 2018 -Hold home agents -Basal/bolus insulin per protocol, in setting of steroids -BSG AC HS (3) CAD (coronary artery disease): S/P stent to LAD at [facility] in July 2017 -No chest pain or acute EKG changes -Continue aspirin, statin (4) Hypertension: Normotensive -Continue home dose losartan, Toprol (5) Hypothyroidism: Continue levothyroxine (6) Hyperlipidemia: Continue atorvastatin, gemfibrozil (7) Mood disorder: Stable. Continue venlafaxine DVT Ppx: SCDs Code status: FULL PCP: Desiree Deng Dispo: Admitted to med/surg. Plan to return home once medically stable. Patient seen in collaboration with Dr. Moore. Please see addendum. History of Present Illness Chief Complaint: Back pain Primary Care Provider: Yani Deng This is a 68-year-old female with a PMH of HTN, HLD, DM II, CAD (s/p stent to LAD in Jul 2017), mood disorder and medical other problems listed below who presents with worsening lower back pain times 2 weeks. Patient initially noted lower back pain on her left side that progressed to hip and then radiated down left leg. Also experiencing paresthesias on anterior left thigh. Went to see a chiropractor last week, and pain became much more severe. Was seen in the ED twice over the past 2 days for pain control and was discharged with lidocaine patch, Flexeril and Medrol Dosepak but pain has persisted. Also feels that left leg is now weaker than right, causing imbalance with ambulation. Patient has seen Clement/Yuridia antony in the past and was told by their office last week to set up appointment with on Friday, but felt that pain was too severe to wait until tomorrow. In ED, patient found to be afebrile and normotensive. Was given 2 doses of morphine and a dose of Dilaudid with some relief. Pain now 5/10, worse with movement. Denies any fever, chills, lightheadedness, headache, chest pain, palpitations, shortness of breath, nausea, vomiting, abdominal pain, dysuria, di arrhea or constipation. Having normal bowel movements. No bowel or bladder incontinence, foot drop or falls. Allergies Allergy/AdvReac Type Severity Reaction Status Date / Time No Known Allergies AdvReac Unknown Unverified 12/27/18 10:30 Home Medications Home Medications Medication Instructions Recorded Confirmed Type aspirin [Aspirin Low Dose] 81 mg PO HS 12/25/18 12/27/18 History atorvastatin 80 mg PO DAILY 12/25/18 12/27/18 History calcium carbonate-vitamin D3 1 tab PO BID 12/25/18 12/27/18 History [Calcium 500 + D] gemfibrozil 600 mg PO BID 12/25/18 12/27/18 History levothyroxine 50 mcg PO QAM 12/25/18 12/27/18 History lidocaine 1 patch TOP DAILY PRN #15 ea 12/25/18 12/27/18 Rx losartan 25 mg PO DAILY 12/25/18 12/27/18 History metformin 1,000 mg PO BID 12/25/18 12/27/18 History methylprednisolone [Medrol (Osorio)] See Rx Instructions .ROUTE 12/25/18 12/27/18 Rx .COMPLEX #21 ea metoprolol succinate 12.5 mg PO QAM 12/25/18 12/27/18 History niacin 2,000 mg PO 1200 12/25/18 12/27/18 History nitroglycerin 0.4 mg SUBLINGUAL DIRECTED 12/25/18 12/27/18 History omega 7-sqq-sey-fish oil [Fish Oil] 1 cap PO 1200 12/25/18 12/27/18 History venlafaxine 50 mg PO DAILY 12/25/18 12/27/18 History cyclobenzaprine 5 mg PO TID PRN #30 tab 12/26/18 12/27/18 Rx Past Med/Surg History Medical History Mood disorder (Chronic) Type 2 diabetes mellitus (Chronic) Hyperlipidemia (Chronic) Hypothyroidism (Chronic) Hypertension (Chronic) CAD (coronary artery disease) (Chronic) Surgical History History of heart artery stent (Chronic) S/P stent to LAD at [facility] in July 2017 History of tonsillectomy (Resolved) Family History Mother CHF (congestive heart failure) Diabetes Social History Preferred Language: Jordanian Communication Ability: Effective Schedule Planning Manager Required: No Beliefs That Will Affect Care: Jain marital status: Current Living Situation: Spouse current occupational status: retired Other Information That Helps Us Care for You: No Feels Safe at Home: Yes Safety Concerns: Feels Safe At This Time Smoking Status: Never smoker Hx Alcohol Use: No Hx Substance Use: No Review of Systems All systems reviewed & are unremarkable except as noted in HPI & below Physical Exam Vital Signs (Past 24 Hours): Last Vital Signs Temp 36.8 C 12/27/18 09:54 Pulse 88 12/27/18 13:25 Resp 16 12/27/18 13:25 BP 126/58 L 12/27/18 13:25 Pulse Ox 90 12/27/18 13:25 Physical Exam: General Appearance: WD/WN, in mild distress from acute illness Head: normocephalic, atraumatic Eyes: normal inspection, PERRL, EOMI ENT: hearing grossly normal, pharynx normal (moist mucous membranes) Neck: supple, no JVD, no adenopathy Respiratory/Chest: lungs clear to auscultation. No wheezes, rales or rhonci. No respiratory distress or accessory muscle use Cardiovascular: regular rate, rhythm, no murmur, normal peripheral pulses Abdomen/GI: normal bowel sounds, soft, non-tender to palpation Extremities/Musculoskelatal: normal inspection. TTP along lumbosacral spine and left hip. No calf tenderness, normal capillary refill, no pedal edema Neurologic/Psych: alert, normal mood/affect, oriented x 3. CN II-XII grossly intact. BUE strength/ROM 5/5. LLE ROM intact, strength 4/5. RLE strength/ROM 5/5. Sensation intact. Skin: normal color, warm/dry Results & Data Laboratory Results Short CBC 12/27/18 Range/Units 09:20 WBC 13.54 H (4.8-10.8) K/uL Hgb 14.6 (12.0-16.0) g/dL Hct 41.6 (37-47) % Plt Count 352 (130-400) K/uL BMP 12/27/18 09:20 Sodium 137 Potassium 4.0 Chloride 100 Carbon Dioxide 28 BUN 16 Creatinine 0.78 Glucose 231 H Calcium 9.6 Liver Function 12/27/18 Range/Units 09:20 Total Bilirubin 0.4 (0.2-1) mg/dl AST 7 L (15-37) U/L ALT 34 (12-78) U/L Alkaline Phosphatase 86 (45-117) U/L Albumin 4.4 (3.4-5.0) gm/dl Diagnostic Findings CXR: IMPRESSION: Negative chest. Lumbar spine MRI: IMPRESSION: 1. Moderate multifactorial spinal stenosis L4-L5. 2. Focal central disc herniation L5-S1 with moderate impact upon the thecal sac and S1 nerve roots bilaterally. Supervising Physician Co-Signing Physician Notes I have seen and examined the patient with physician physician office assistant and agree with the assessment and plan as above and would like to comment that patient has preliminary diagnosis of Sacroiliitis as Lumbar MRI with Focal central disc herniation L5-S1 with moderate impact upon the thecal sac and S1 nerve roots bilaterally; also there is Moderate multifactorial spinal stenosis L4-L5. These findings appear to correlate with her symptoms of sciatic nerve pain down left leg. Will continue pain control including with steroids as anti-inflammatory for now. Patient has type 2 diabetes mellitus not on half-way use of insulin and so will cover serum glucose with insulin for now agree with other medical management of health issues as documented by physician physician office assistant Physical Exam General: no distress Heart: regular rate, Lung: clear to auscultation bilaterally, no wheezing Abdomen: soft, nontender, positive bowel sounds Back: pain as per patient towards left lower flank above the hip Extremities: able to move all extremities
[2018-12-27] MEDS ORDERED: ONDANSETRON INJ 2 MG/ML 2 ML VIAL IV PRN (13:46)
[2018-12-27] MEDS ORDERED: DEXTROSE 50% 50 ML SYRINGE IV PRN (13:46)
[2018-12-27] MEDS ORDERED: POLYETHYLENE (MIRALAX) 17 GM PACK PO PRN (13:46)
[2018-12-27] MEDS ORDERED: NITROGLYCERIN SL 0.4 MG/TAB TAB SL PRN (13:46)
[2018-12-27] MEDS ORDERED: LIDOCAINE 5% 1 PATCH TD PRN (13:46)
[2018-12-27] MEDS ORDERED: GLUCOSE 10 TABS/TUBE PO PRN (13:46)
[2018-12-27] MEDS ORDERED: GLUCOSE 40% GEL 15 GM TUBE PO PRN (13:46)
[2018-12-27] MEDS ORDERED: CARBOHYDRATES FOR HYPOGLYCEMIA PO PRN (13:46)
[2018-12-27] MEDS ORDERED: GLUCAGON FOR INJ 1 MG VIAL SQ PRN (13:46)
[2018-12-27] MEDS: ACETAMINOPHEN 500 MG TAB PO PRN (14:43)
[2018-12-27] MEDS: CYCLOBENZAPRINE HCL 5 MG TAB PO PRN ×2 (14:43→20:23)
[2018-12-27] MEDS: methylPREDNISolone 40 MG in SYRINGE 0 ML IV SCH (14:44)
[2018-12-27] MEDS: INSULIN ASPART 100 UNITS/ML 3 ML PEN SC SCH ×4 (14:46→23:41)
[2018-12-27] MEDS: INSULIN GLARGINE SOLOSTAR 100 UNITS/ML 3 ML PEN SC SCH ×2 (14:46→21:28)
[2018-12-27] MEDS: OXYCODONE HCL IR 5 MG TAB (IMMEDIATE RELEASE) PO PRN ×2 (15:44→22:05)
[2018-12-27] MEDS: CALCIUM 600MG + VIT D 400 IU TAB PO SCH (20:23)
[2018-12-27] MEDS ORDERED: Nursing to Pharmacy Communication ONE ×2 (20:35→21:38)
[2018-12-27] MEDS ORDERED: GEMFIBROZIL 600 MG TAB PO SCH (21:00)
[2018-12-27] MEDS ORDERED: ASPIRIN 81 MG ECTAB PO SCH (21:00)
[2018-12-28] MEDS: HYDROmorphone INJ 0.5 MG/0.5 ML SYR IV PRN ×3 (00:42→11:59)
[2018-12-28] MEDS: OXYCODONE HCL IR 5 MG TAB (IMMEDIATE RELEASE) PO PRN ×3 (03:49→21:51)
[2018-12-28 05:30] LABS: Hematocrit (blood only) 37.1 % (37-47); Hemoglobin 12.4 g/dL (12.0-16.0); Mean Corpuscular Hgb Conc 33.4 g/dL (32-36); Mean Corpuscular Volume 88.1 fL (80-100); Mean Platelet Volume 9.1 fL (7.4-10.4); Platelet Count 355 K/uL (130-400); RDW Coefficient of Variation 13.2 % (11.5-14.5); RDW Standard Deviation 42.5 fL (36.4-46.3); Red Blood Count 4.21 M/uL (4.2-5.4); White Blood Count 11.54 K/uL (4.8-10.8)
[2018-12-28] MEDS: LEVOTHYROXINE SODIUM 50 MCG TABLET PO SCH (05:39)
[2018-12-28] MEDS: INSULIN ASPART 100 UNITS/ML 3 ML PEN SC SCH ×3 (05:46→18:56)
[2018-12-28 05:48] LABS: BUN Creatinine Ratio 27.7 (10-20); Calcium 8.8 mg/dl (8.5-10.1); Creatinine Clr Calc Pharmacy 81.5 ml/min; Est GFR (African American) 97.2; Est GFR (Non-African American) 83.8; Potassium 3.8 mmol/L (3.5-5.1)
[2018-12-28] MEDS: GEMFIBROZIL 600 MG TAB PO SCH ×2 (08:02→16:35)
[2018-12-28] MEDS: CALCIUM 600MG + VIT D 400 IU TAB PO SCH ×2 (08:02→21:43)
[2018-12-28] MEDS: INSULIN GLARGINE SOLOSTAR 100 UNITS/ML 3 ML PEN SC SCH ×2 (08:13→21:49)
[2018-12-28] MEDS: methylPREDNISolone 40 MG in SYRINGE 0 ML IV SCH (08:18)
[2018-12-28] MEDS ORDERED: LOSARTAN POTASSIUM 25 MG TAB PO SCH (09:00)
[2018-12-28] MEDS ORDERED: VENLAFAXINE HCL 50 MG TAB PO SCH (09:00)
[2018-12-28] MEDS ORDERED: METOPROLOL SUCC 25MG EXT REL TAB PO SCH (09:00)
[2018-12-28] MEDS ORDERED: ATORVASTATIN 40 MG TAB PO SCH (09:00)
--- NOTE | 2018-12-28 10:44 | Hospitalist Progress Note ---
Date of Service December 28, 2018 Assessment & Plan (1) Sacroiliitis: This is a 68-year-old female with a PMH of HTN, HLD, DM II, CAD (s/p stent to LAD in Jul 2017), mood disorder and medical other problems listed below who presents with worsening lower back pain times 2 weeks and was found to have sacroiliitis. -Worsening left back pain with radiating pain into left leg times 2 weeks -Seen in ED 3 days in a row, pain not controlled with lidocaine patch, Flexeril and Medrol Dosepak -Was admitted to [facility] on 12/27/18 for pain management -Patient has preliminary diagnosis of Sacroiliitis as Lumbar MRI with Focal central disc herniation L5-S1 with moderate impact upon the thecal sac and S1 nerve roots bilaterally; also there is Moderate multifactorial spinal stenosis L4-L5. These findings appear to correlate with her symptoms of sciatic nerve pain down left leg. -Will continue pain control including with steroids as anti-inflammatory for now. Patient has type 2 diabetes mellitus not on rat exterminator use of insulin and so will cover serum glucose with insulin for now -Pain control, IV Solu-Medrol 40 mg daily -awaiting full consultation recommendations for orthopedics service -Dr. Knapp from orthopedics also asked for pain management consult and this was also requested by hospitalist medical service (2) Type 2 diabetes mellitus: A1c of 7.6 in Oct 2018 -Hold home agents -on insulin while inpatient -will start D5 1/2 normal saline while NPO in anticipation for possible invasive orthopedic/pain management interventions -if no such acute procedures then will place on diabetes diet (3) CAD (coronary artery disease): S/P stent to LAD at [facility] in July 2017 -No chest pain or acute EKG changes -Continue aspirin, statin (4) Hypertension: Normotensive -Continue home dose losartan, Toprol (5) Hypothyroidism: Continue levothyroxine (6) Hyperlipidemia: Continue atorvastatin, gemfibrozil (7) Mood disorder: Stable. Continue venlafaxine DVT Ppx: SCDs Code status: FULL Subjective Patient seen and examined today. Patient reports she has been ambulatory. Reports pain at rest is controlled but left leg more pain when ambulating. Yesterday feeling more pain down the left thigh. Today the pain radiating lower. Patient's legs in SCDs during physical exam. Patient denies vomiting. no abdominal pain, no chest pain Physical Exam Vital Signs (Past 24 Hours): Last Vital Signs Temp 36.6 C 12/28/18 06:51 Pulse 66 12/28/18 06:51 Resp 18 12/28/18 06:51 BP 134/79 12/28/18 06:51 Pulse Ox 95 12/28/18 06:51 Constitutional: WD/WN, vitals as above Eyes: PERRL, conjunctivae normal, anicteric sclerae EOM intact bilaterally ENMT: external ear and nose normal, oropharynx normal Neck: trachea midline, no thyromegaly Respiratory: normal respiratory effort, lungs clear to auscultation Cardiovascular: Rate/Rhythm: regular rhythm and + bradycardic Gastrointestinal (Abdomen): normal bowel sounds, soft, nontender, no hepatosplenomegaly Musculoskeletal: Head/Neck/Chest: normocephalic and head atraumatic Neurologic: PERRL, EOMI, accommodation nl, no face palsy, no dysarthria able to move all extremities Psychiatric: A+Ox3, euthymic affect
[2018-12-28] MEDS ORDERED: D5W AND 1/2NSS 1,000 ML IV SCH (10:45)
[2018-12-28] MEDS ORDERED: BACLOFEN 10 MG TAB PO PRN (14:30)
--- NOTE | 2018-12-28 14:41 | Pain Management Consultation ---
Date of Consultation December 28, 2018 Assessment & Plan (1) Herniation of intervertebral disc between L5 and S1: 1. As patient is without red flags recommend conservative measures at this time. Patient is agreeable to initiation of gabapentin 300 mg p.o. twice daily, baclofen 10 mg p.o. 3 times daily as needed at this time. She was counseled on the side effects, risks, expectations, benefits of the medications and agrees to proceed. Orders are written 2. Recommend L5-S1 left paramedian epidural steroid injection. This may be performed as an outpatient and is tentatively scheduled for 12/29/2018 at 8:30 in the morning at my office. The patient will need to be n.p.o. for 8 hours, hold her as needed insulin, utilize one half of basal insulin, hold her aspirin for 24 hours, have an adult vacuum truck driver to escort her home. An instruction sheet will be faxed to the nurses station for her to refer to these instructions. 3. She was counseled on the risk, side effects, possible complications, benefits and expectations of epidural steroid injections in expresses understanding. She was counseled on preprocedure instructions and denied further question. 4. Above was discussed with Dr. Moore 5. Thank you for this consultation (2) Left lumbar radiculitis: (3) Type 2 diabetes mellitus: (4) History of heart artery stent: (5) CAD (coronary artery disease): History of Present Illness Reason for Consultation: Lumbar radiculitis left Attending Physician: Jason Moore MD History of Present Illness 68-year-old female with 2-week history of 70% left L5 dermatome radicular symptoms to 30% axial low back pain. She denies any trauma or injury as the etiology of the pain. She reports that she has had back pain in the past but not to this degree. She states that pain ranges between 5 and 10 out of 10 characterized best as sharp, shooting, electric. She admits the pain is left- sided only. She denies any bowel or bladder incontinence, motor weakness, footdrop, fever, chills, and or night sweats. She is currently admitted for pain control as she had been in the emergency room 3 days in a row second to p ain. Previous interventions include heat, ice, massage, chiropractic without relief. She is currently utilizing oxycodone 5 mg,, IV steroids, IV hydromorphone with minimal overall improvement in pain. She reports that she is able to ambulate but it is difficult to do so secondary to pain. Pain Assessment Full Body Front + Back: 1. 2. Allergies Allergy/AdvReac Type Severity Reaction Status Date / Time No Known Allergies AdvReac Unknown Unverified 12/27/18 10:30 Home Medications Home Medications Medication Instructions Recorded Confirmed Type aspirin [Aspirin Low Dose] 81 mg PO HS 12/25/18 12/27/18 History atorvastatin 80 mg PO DAILY 12/25/18 12/27/18 History calcium carbonate-vitamin D3 1 tab PO BID 12/25/18 12/27/18 History [Calcium 500 + D] gemfibrozil 600 mg PO BID 12/25/18 12/27/18 History levothyroxine 50 mcg PO QAM 12/25/18 12/27/18 History lidocaine 1 patch TOP DAILY PRN #15 ea 12/25/18 12/27/18 Rx losartan 25 mg PO DAILY 12/25/18 12/27/18 History metformin 1,000 mg PO BID 12/25/18 12/27/18 History methylprednisolone [Medrol (Osorio)] See Rx Instructions .ROUTE 12/25/18 12/27/18 Rx .COMPLEX #21 ea metoprolol succinate 12.5 mg PO QAM 12/25/18 12/27/18 History niacin 2,000 mg PO 1200 12/25/18 12/27/18 History nitroglycerin 0.4 mg SUBLINGUAL DIRECTED 12/25/18 12/27/18 History omega 2-xzi-inq-fish oil [Fish Oil] 1 cap PO 1200 12/25/18 12/27/18 History venlafaxine 50 mg PO DAILY 12/25/18 12/27/18 History cyclobenzaprine 5 mg PO TID PRN #30 tab 12/26/18 12/27/18 Rx Patient History Medical History Mood disorder (Chronic) Type 2 diabetes mellitus (Chronic) Hyperlipidemia (Chronic) Hypothyroidism (Chronic) Hypertension (Chronic) CAD (coronary artery disease) (Chronic) Surgical History History of heart artery stent (Chronic) S/P stent to LAD at [facility] in July 2017 History of tonsillectomy (Resolved) Family History Mother CHF (congestive heart failure) Diabetes Social History Communication Ability: Effective Beliefs That Will Affect Care: Sikhism marital status: Current Living Situation: Spouse current occupational status: retired Other Information That Helps Us Care for You: No Feels Safe at Home: Yes Safety Concerns: Feels Safe At This Time Smoking Status: Never smoker Hx Alcohol Use: No Hx Substance Use: No Review of Systems Constitutional: Negative for fever, chills, sweats Eyes: Negative for eye pain, photophobia, drainage Ear, nose, mouth, throat: Negative for ear pain, nasal congestion, mouth lesions, change in voice Respiratory: Negative for wheezing, sputum production Cardiovascular: Negative for chest pain, palpitations, calf pain Gastrointestinal: Negative for abdominal pain, belching, bloating Genitourinary: Negative for dysuria, urinary incontinence, urinary urgency Musculoskeletal: Negative for deformities Integumentary: Negative for nail changes, skin yellowing, pruritus Neurological: Negative for abnormal speech, seizure type activity Physical Exam Vital Signs (Past 24 Hours): Last Vital Signs Temp 36.6 C 12/28/18 06:51 Pulse 66 12/28/18 06:51 Resp 18 12/28/18 06:51 BP 134/79 12/28/18 06:51 Pulse Ox 95 12/28/18 06:51 Physical Exam: Constitutional: Well-developed, well-nourished, healthy-appea ring, overweight appears slightly deconditioned Psych: Awake, alert, and oriented �3 with normal affect and mood. Recent memory appears grossly intact Eyes: Pupils are equally round and reactive to light with normal size pupils, eyelids appear normal Ear, nose, mouth, and throat: Moist nasal and oral membranes, lips and tongues appear normal, no external ear abnormalities are noted Neck: The trachea is midline without deviation and no thyromegaly is noted Respiratory: Normal respiratory effort without distress, no audible wheezes or rhonchi CV: Normal S1 and S2 Chest: Deferred Musculoskeletal: Head is normocephalic and atraumatic, gait was not observed Cervical: Lordotic curve: Normal Range of motion is normal with extension, flexion, side-bending, rotation Strength: Strength is grossly equal bilaterally with 5 out of 5 strength in all planes Thoracic: Kyphotic curve: Normal Range of motion is normal with extension, flexion, side-bending, rotation Tenderness: Nontender over the axial midline Myofascial spasm: No appreciable spasm. No discrete trigger points noted Lumbar: Lordotic curve: Normal Range of motion is decreased secondary to pain with extension, flexion, side- bending, rotation Tenderness: Moderately tender over the axial midline from left L3 through S1 Facet provocation: Marginally positive bilaterally Straight leg raise: Positive on the left negative on the right Step-off injuries: None Strength: Strength is equal bilaterally with 5 out of 5 strength in all planes Sensation of lower extremities: Intact bilaterally Deep tendon reflexes: Rated at 2+ in bilateral L4 and S1 Myofascial spasm: Mild lumbar paravertebral musculature spasm. No discrete trigger points noted Greater trochanters: Nontender bilaterally Sacroiliac joints: Nontender bilaterally Pathologic reflexes noted: None Skin: No rashes, lesions, ulcers, or induration noted Neuro: No nystagmus noted, the tongue is midline, the patient is able to rotate their head bilaterally : Deferred Results & Data Diagnostic Findings [facility], [place] [phone] Magnetic Resonance Report Patient: MARIE ARORA Date: 12/27/18 MR#: [id number]: [id number] [facility] Acct ID:[id number]: Date: [address] [place] [address] Zip: [facility] R[place] RIVERA [address] Age: 68Location: ED Sex: F Room/Bed: Att Phy: Diagnosis: LEFT SIDE BACK PAIN Heather Phy: Yani Deng DBetyOBetyService Date: 12/27/18 Fam Phy: Interpreting Phy: Ernie Hammond MD Admit Phy: Ordering Phy: Darrius Park PA cc: ~ MR lumbar spine wo con HISTORY: Pain. Radiculopathy. Worsening L lumbar radiculitis TECHNIQUE: Multiplanar multisequence MRI of the lumbar spine was performed without the use of contrast. COMPARISON: None. FINDINGS: For the purpose of the report the L5-S1 disc space will be located on axial image 23 of 25. Signal characteristics of the vertebral bodies are unremarkable. There is moderate degenerative disc desiccation throughout. This is most prominent at L4- L5 and L5-S1. L1-L2: No significant central canal or neural foraminal narrowing. L2-L3: No significant central canal or neural foraminal narrowing. L3-L4: Minimal broad-based disc bulge. Minimal impact anterior thecal sac. L4-L5: Moderate multifactorial spinal stenosis. Moderate narrowing of the left neural foramina. Moderate impact left anterior and left lateral thecal sac. L5-S1: Focal central disc herniation. Moderate impact anterior thecal sac and bilateral S1 nerve roots. IMPRESSION: 1. Moderate multifactorial spinal stenosis L4-L5. 2. Focal central disc herniation L5-S1 with moderate impact upon the thecal sac and S1 nerve roots bilaterally.
--- NOTE | 2018-12-28 16:38 | Consultation Report ---
DATE OF ADMISSION: 12/27/2018 CHIEF COMPLAINT: Back and left lower extremity difficulty, signs and symptoms of nerve root irritation of lumbar spine, signs and symptoms of stenosis and disc issues at 68 years of age. HISTORY OF PRESENT ILLNESS: She was in her usual state of health over the last several weeks, has made 3-4 trips to the Emergency Room, evaluated, treated, placed on medication and sent home. Finally, yesterday, she was admitted. PAST MEDICAL HISTORY: Diabetes, coronary artery disease, hypertension, hyperlipidemia. ALLERGIES: Denied. MEDICATIONS: Numerous and reviewed. PAST SURGICAL HISTORY: Includes stent placement, tonsillectomy. FAMILY HISTORY: Diabetes and heart failure. REVIEW OF SYSTEMS: She denies any fevers, sweats, chills. She is alert, oriented. Denies chest pain, palpitations. Denies nausea, vomiting. No urgency, frequency. No loss of bowel or bladder consequences. PHYSICAL EXAMINATION: GENERAL: She is alert, oriented. She is 5 feet 6 inches, 180 pounds. She is in distress, sitting, standing, has difficulty mobilizing. SKIN: Intact. Vascular structures intact. No zoster rashes. NEUROLOGIC: Normal. 5/5 strength, good sensation, motor ability, no deficit. No straight leg raising pain, slight gait abnormality, no upper motor neuron issues. IMAGES: Demonstrate stenosis particularly at L4-L5 and L5-S1, moderate intensity disc herniation as well at L5-S1 and moderate intensity not profound. ASSESSMENT: Delightful lady, 68, multi-medical problems, all under control with a disc protrusion of the spine, stenosis. PLAN: I would like to treat this with pain management injections to try to avoid surgical intervention if at all possible. We will try to get this set with Dr. Fernández and for some injection techniques to the spine and I will see her back in the office for my followup. I did mention the family that surgery does become an option. The family is to call [phone] and ask for appointment with Dr. Knapp as soon as possible.
[2018-12-28] MEDS ORDERED: GABAPENTIN 300 MG CAP PO SCH (21:00)
[2018-12-28] MEDS: ACETAMINOPHEN 500 MG TAB PO PRN (21:50)
[2018-12-29] MEDS: INSULIN ASPART 100 UNITS/ML 3 ML PEN SC SCH ×2 (00:51→06:19)
[2018-12-29] MEDS: OXYCODONE HCL IR 5 MG TAB (IMMEDIATE RELEASE) PO PRN (04:08)
[2018-12-29] MEDS: LEVOTHYROXINE SODIUM 50 MCG TABLET PO SCH (06:02)
[2018-12-29] MEDS: ACETAMINOPHEN 500 MG TAB PO PRN (06:53)
[2018-12-29 07:05] LABS: Hematocrit (blood only) 39.3 % (37-47); Hemoglobin 13.3 g/dL (12.0-16.0); Mean Corpuscular Hgb Conc 33.8 g/dL (32-36); Mean Corpuscular Volume 88.3 fL (80-100); Mean Platelet Volume 9.3 fL (7.4-10.4); Platelet Count 319 K/uL (130-400); RDW Coefficient of Variation 13.3 % (11.5-14.5); RDW Standard Deviation 42.6 fL (36.4-46.3); Red Blood Count 4.45 M/uL (4.2-5.4); White Blood Count 10.73 K/uL (4.8-10.8)
--- NOTE | 2018-12-29 07:17 | Hospitalist Progress Note ---
Date of Service December 29, 2018 Assessment & Plan (1) Sacroiliitis: This is a 68-year-old female with a PMH of HTN, HLD, DM II, CAD (s/p stent to LAD in Jul 2017), mood disorder and medical other problems listed below who presents with worsening lower back pain times 2 weeks and was found to have sacroiliitis. Herniation of intervertebral disc between L5 and S1, Left lumbar radiculitis/Sacroiliitis, -Worsening left back pain with radiating pain into left leg times 2 weeks -Seen in ED 3 days in a row, pain not controlled with lidocaine patch, Flexeril and Medrol Dosepak -Was [facility] on 12[facility] for pain management -Patient has diagnosis of Herniation of intervertebral disc between L5 and S1, Left lumbar radiculitis/Sacroiliitis, as Lumbar MRI with Focal central disc herniation L5-S1 with moderate impact upon the thecal sac and S1 nerve roots bilaterally; also there is Moderate multifactorial spinal stenosis L4-L5. These findings appear to correlate with her symptoms of sciatic nerve pain down left leg. -was monitored in hospital for pain control and orthopedic and pain management evaluations -orthopedic service indicated non operative management and plans were made to coordinate patient's care with pain management as outpatient -discharge with prescriptions for baclofen and gabapentin Discharge to home and for immediate follow up with Dr. Fernández for outpatient L5-S1 left paramedian epidural steroid injection at [facility] Management clinic on 12/29/2018 at 8:30 in the morning at [address], [place] [address] [place] PDMP System was checked and patient has no recent active narcotic medications on record for outpatient use Patient should follow pain medication control with Dr. Fernández of pain management and primary care doctor call [phone] and ask for appointment with Dr. Knapp for [facility] clinic follow up at [address], [place] [address] Primary Care Doctor appointment 12/30/2018 1:00 PM Provider Miles Alcantara DO Department Family Practice [facility] (2) Type 2 diabetes mellitus: A1c of 7.6 in Oct 2018 patient can resume home dose metformin (3) CAD (coronary artery disease): S/P stent to LAD at [facility] in July 2017 -No chest pain or acute EKG changes -Continue statin -stopped aspirin because patient going to get epidural steroid injection with pain management (4) Hypertension: Normotensive -Continue home dose losartan, Toprol (5) Hypothyroidism: Continue levothyroxine (6) Hyperlipidemia: Continue atorvastatin, gemfibrozil (7) Mood disorder: Stable. Continue venlafaxine DVT Ppx: SCDs Code status: FULL Discharge Diagnosis Herniation of intervertebral disc between L5 and S1, Left lumbar radiculitis/ Sacroiliitis, Type 2 diabetes mellitus not on hog ribber use of insulin Discharge Instructions Discharge to home and for immediate follow up with Dr. Fernández for outpatient L5-S1 left paramedian epidural steroid injection at [facility] Management clinic on 12/29/2018 at 8:30 in the morning at [address], [place] [address] [place] PDMP System was checked and patient has no recent active narcotic medications on record for outpatient use Patient should follow pain medication control with Dr. Fernández of pain management and primary care doctor call [phone] and ask for appointment with Dr. Knapp for [facility] follow up at [address], [place] [address] Primary Care Doctor appointment 12/30/2018 1:00 PM Provider Miles Alcantara DO Department Family Practice [facility] Subjective Patient reports she slept some overnight. Needed an additional prn oxycodone tablet overnight. no distress. Patient denies shortness of breath. denies chest pain. denies abdominal pain. 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 Fernández at 8:30 Am to give epidural steroid injection Physical Exam Vital Signs (Past 24 Hours): Last Vital Signs Temp 36.8 C 12/29/18 07:10 Pulse 76 12/29/18 07:10 Resp 16 12/29/18 07:10 BP 144/86 H 12/29/18 07:10 Pulse Ox 98 12/29/18 07:10 Constitutional: WD/WN, vitals as above Eyes: PERRL, conjunctivae normal, anicteric sclerae EOM intact bilaterally ENMT: external ear and nose normal, oropharynx normal Neck: trachea midline, no thyromegaly Respiratory: normal respiratory effort, lungs clear to auscultation Cardiovascular: Rate/Rhythm: regular rate and regular rhythm Gastrointestinal (Abdomen): normal bowel sounds, soft, nontender, no hepatosplenomegaly Musculoskeletal: Head/Neck/Chest: normocephalic and head atraumatic Neurologic: PERRL, EOMI, accommodation nl, no face palsy, no dysarthria Psychiatric: A+Ox3, euthymic affect
--- NOTE | 2018-12-29 07:32 | Discharge Summary ---
Date of Service December 29, 2018 Admission HPI Per Admitting Provider This is a 68-year-old female with a PMH of HTN, HLD, DM II, CAD (s/p stent to LAD in Jul 2017), mood disorder and medical other problems listed below who presents with worsening lower back pain times 2 weeks. Patient initially noted lower back pain on her left side that progressed to hip and then radiated down left leg. Also experiencing paresthesias on anterior left thigh. Went to see a chiropractor last week, and pain became much more severe. Was seen in the ED twice over the past 2 days for pain control and was discharged with lidocaine patch, Flexeril and Medrol Dosepak but pain has persisted. Also feels that left leg is now weaker than right, causing imbalance with ambulation. Patient has seen Sandeep antony in the past and was told by their office last week to set up appointment with on Friday, but felt that pain was too severe to wait until tomorrow. In ED, patient found to be afebrile and normotensive. Was given 2 doses of morphine and a dose of Dilaudid with some relief. Pain now 5/10, worse with movement. Denies any fever, chills, lightheadedness, headache, chest pain, palpitations, shortness of breath, nausea, vomiting, abdominal pain, dysuria, diarrhea or constipation. Having normal bowel movements. No bowel or bladder incontinence, foot drop or falls. Admission Exam Per Admitting Provider General Appearance: WD/WN, in mild distress from acute illness Head: normocephalic, atraumatic Eyes: normal inspection, PERRL, EOMI ENT: hearing grossly normal, pharynx normal (moist mucous membranes) Neck: supple, no JVD, no adenopathy Respiratory/Chest: lungs clear to auscultation. No wheezes, rales or rhonci. No respiratory distress or accessory muscle use Cardiovascular: regular rate, rhythm, no murmur, normal peripheral pulses Abdomen/GI: normal bowel sounds, soft, non-tender to palpation Extremities/Musculoskelatal: normal inspection. TTP along lumbosacral spine and left hip. No calf tenderness, normal capillary refill, no pedal edema Neurologic/Psych: alert, normal mood/affect, oriented x 3. CN II-XII grossly intact. BUE strength/ROM 5/5. LLE ROM intact, strength 4/5. RLE strength/ROM 5/5. Sensation intact. Skin: normal color, warm/dry Principal Diagnosis Herniation of intervertebral disc between L5 and S1, Left lumbar radiculitis/Sacroiliitis, Type 2 diabetes mellitus not on nursing home use of insulin Discharge Exam Constitutional WD/WN, vitals as above Eyes PERRL, conjunctivae normal, anicteric sclerae EOM intact bilaterally ENMT external ear and nose normal, oropharynx normal Neck trachea midline, no thyromegaly Respiratory normal respiratory effort, lungs clear to auscultation Cardiovascular Rate/Rhythm: regular rate and regular rhythm Gastrointestinal (Abdomen) normal bowel sounds, soft, nontender, no hepatosplenomegaly Musculoskeletal Head/Neck/Chest: normocephalic and head atraumatic Neurologic PERRL, EOMI, accommodation nl, no face palsy, no dysarthria Psychiatric A+Ox3, euthymic affect Discharge Data Allergies Allergy/AdvReac Type Severity Reaction Status Date / Time No Known Allergies AdvReac Unknown Unverified 12/27/18 10:30 Consultations 12/27/18 12:30 ED Decision to Admit Stat 12/28/18 07:00 Consult Orthopedic Surgery Routine 12/28/18 10:21 Consult Pain Management Routine Ordered Studies 12/27/18 10:06 MR lumbar spine wo con Stat Hospital Course (1) Sacroiliitis: This is a 68-year-old female with a PMH of HTN, HLD, DM II, CAD (s/p stent to LAD in Jul 2017), mood disorder and medical other problems listed below who presents with worsening lower back pain times 2 weeks and was found to have sacroiliitis. Herniation of intervertebral disc between L5 and S1, Left lumbar radiculitis/Sacroiliitis, -Worsening left back pain with radiating pain into left leg times 2 weeks -Seen in ED 3 days in a row, pain not controlled with lidocaine patch, Flexeril and Medrol Dosepak -Was [facility] on 12/[facility]/18 for pain management -Patient has diagnosis of Herniation of intervertebral disc between L5 and S1, Left lumbar radiculitis/Sacroiliitis, as Lumbar MRI with Focal central disc herniation L5-S1 with moderate impact upon the thecal sac and S1 nerve roots bilaterally; also there is Moderate multifactorial spinal stenosis L4-L5. These findings appear to correlate with her symptoms of sciatic nerve pain down left leg. -was monitored in hospital for pain control and orthopedic and pain management evaluations -orthopedic service indicated non operative management and plans were made to coordinate patient's care with pain management as outpatient -discharge with prescriptions for baclofen and gabapentin Discharge to home and for immediate follow up with Dr. Fernández for outpatient L5-S1 left paramedian epidural steroid injection at Pain Management clinic on 12/29/2018 at 8:30 in the morning at [address], [place] [address] [place] PDMP System was checked and patient has no recent active narcotic medications on record for outpatient use Patient should follow pain medication control with Dr. Fernández of pain management and primary care doctor call [phone] and ask for appointment with Dr. Knapp for [facility] follow up at [address], [place] [address] Primary Care Doctor appointment 12/30/2018 1:00 PM Provider Miles Alcantara DO Department Family Practice [facility] (2) Type 2 diabetes mellitus: A1c of 7.6 in Oct 2018 patient can resume home dose metformin (3) CAD (coronary artery disease): S/P stent to LAD at [facility] in July 2017 -No chest pain or acute EKG changes -Continue statin -stopped aspirin because patient going to get epidural steroid injection with pain management (4) Hypertension: Normotensive -Continue home dose losartan, Toprol (5) Hypothyroidism: Continue levothyroxine (6) Hyperlipidemia: Continue atorvastatin, gemfibrozil (7) Mood disorder: Stable. Continue venlafaxine DVT Ppx: SCDs Code status: FULL Discharge Diagnosis Herniation of intervertebral disc between L5 and S1, Left lumbar radiculitis/Sacroiliitis, Type 2 diabetes mellitus not on nursing home use of insulin Discharge Instructions Discharge to home and for immediate follow up with Dr. Fernández for outpatient L5-S1 left paramedian epidural steroid injection at Pain Management clinic on 12/29/2018 at 8:30 in the morning at [address], [place] [address] [place] PDMP System was checked and patient has no recent active narcotic medications on record for outpatient use Patient should follow pain medication control with Dr. Fernández of pain management and primary care doctor call [phone] and ask for appointment with Dr. Knapp for [facility] follow up at [address], [place] [address] Primary Care Doctor appointment 12/30/2018 1:00 PM Provider Miles Alcantara DO [facility] Total Time Total Time Spent Total Time Spent (In Minutes): 40 minutes Total Time Includes: Examination of the Patient, Discharge Planning and Medication Reconciliation Discharge Plan Discharge Items Patient Disposition: Home - Self-Care Reason For Visit: BACK PAIN,LUMBAR RADIDULOPATHY Discharge Diagnosis: Herniation of intervertebral disc between L5 and S1, Left lumbar radiculitis/Sacroiliitis, 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 Fernández for outpatient L5-S1 left paramedian epidural steroid injection at Pain Management clinic on 12/29/2018 at 8:30 in the morning at [address], [place] [address] [place] PDMP System was checked and patient has no recent active narcotic medications on record for outpatient use Patient should follow pain medication control with Dr. Fernández of pain management and primary care doctor call [phone] and ask for appointment with Dr. Knapp for [facility] clinic follow up at [address], [place] [address] Primary Care Doctor appointment 12/30/2018 1:00 PM Provider Miles Alcantara [facility] Prescriptions: New baclofen 10 mg Tablet 10 mg PO TID PRN (Reason: muscle spasm) 5 Days Qty: 15 RF: 0 gabapentin 300 mg Capsule 300 mg PO BID 30 Days Qty: 60 RF: 0 Continued metformin 500 mg tablet 1,000 mg PO BID RF: 0 atorvastatin 80 mg tablet 80 mg PO DAILY RF: 0 venlafaxine 25 mg tablet 50 mg PO DAILY RF: 0 gemfibrozil 600 mg tablet 600 mg PO BID RF: 0 levothyroxine 50 mcg tablet 50 mcg PO QAM RF: 0 losartan 25 mg tablet 25 mg PO DAILY RF: 0 nitroglycerin 0.4 mg Tablet, Sublingual 0.4 mg Sublingual DIRECTED RF: 0 metoprolol succinate 25 mg tablet extended release 24 hr 12.5 mg PO QAM RF: 0 calcium carbonate-vitamin D3 [Calcium 500 + D] 500 mg(1,250mg) -200 unit Tablet 1 tab PO BID RF: 0 omega 2-lsy-apg-fish oil [Fish Oil] 1,000 mg (120 mg-180 mg) Capsule 1 cap PO 1200 RF: 0 niacin 1,000 mg Tablet Extended Release 2,000 mg PO 1200 RF: 0 methylprednisolone [Medrol (Osorio)] 4 mg tablets,dose pack See Rx Instructions .ROUTE .COMPLEX Qty: 21 RF: 0 lidocaine 5 % adhesive patch,medicated 1 patch TOP DAILY PRN (Reason: back pain) Qty: 15 RF: 0 Discontinued aspirin [Aspirin Low Dose] 81 mg Tablet,Delayed Release (Dr/Ec) 81 mg PO HS RF: 0 cyclobenzaprine 5 mg tablet 5 mg PO TID PRN (Reason: muscle spasm) Qty: 30 RF: 0 Stand-Alone Forms: [facility] Discharge Orders: Discharge Order (Routine); Ordered 12/29/18 Ordered By: Jason Moore Admission Data Admit Date/Time: 12/27/18 13:20 Attending Provider: Jason Moore Admit Provider: Jason Moore Primary Care Provider: Yani Deng Other Providers: Delbert Knapp ; Jason Moore ; Guillaume Shoemaker Service: Surgical Services Other Interventions: Discharge Summary Assessment (RN) Last Done: 12/29/18 06:55 Pending Studies at Discharge: No
[2018-12-29 07:33] LABS: BUN Creatinine Ratio 28.8 (10-20); Calcium 9.2 mg/dl (8.5-10.1); Creatinine Clr Calc Pharmacy 83.8 ml/min; Est GFR (African American) 100.4; Est GFR (Non-African American) 86.7; Potassium 3.4 mmol/L (3.5-5.1)
== END 2018-12-29 07:45 | disposition home or self-care (01) | DRG 552 ==
LOC: ED 09:52 → 3E 13:20